=== PATIENT | male | born 1955 | race Caucasian/White ===

== ENCOUNTER 2016-07-03 00:35 | Inpatient (IN) | payer MEDICARE ==
--- NOTE | ~2016-07-03 | PN ---
Unit #: [id number] #: [id number] Patient: OSMANY ADAM [id number] [facility] [address] [place] [address] [id number] MR#: [id number] NAME: OSMANY ADAM ROOM: 12 Age: 60 Sex: M Admission Date: 07/03/2016 : 1955 Attending Physician: Ricki Adhikari M.D. Admitting Physician: Ricki Adhikari M.D. Primary Care Physician: Primary Care Physician Leyda SEBASTIAN NOTES DATE OF SERVICE: 07/05/2016 DISCUSSION Mr. Osmany Adam is a 60-year-old male, seen on 07/05/2016. The patient interviewed, chart reviewed, and obtained information from nursing staff. The patient continues to be isolative and flat affect, but did not require any p.r.n. The patient was able to maintain safe behavior. No aggressive behavior. Flat affect, sad, dysphoric, guarded, paranoid. Compliant with medication. Complete review of systems unremarkable. MENTAL STATUS EXAMINATION General appearance, the patient dressed casually. Attention span and concentration, fair. Oriented in place and person. Mood and affect; sad, dysphoric, flat affect. Speech, monotone. Thought process, concrete. The patient denied any thoughts of harming self or others or any psychotic symptom. Recent and remote memory, poor. Insight and judgment, poor. DIAGNOSIS Schizophrenia, chronic paranoid type. ASSESSMENT AND PLAN Advised to continue with current medication and therapeutic protocol. We will monitor response to medication and make further adjustment of medication. Dictated by... Ginny Mcdonald/felisha TD: 07/06/2016 18:48 JOB #: [id number] Unit #: [id number] #: [id number] Patient: OSMANY ADAM ROMULO NOTES X Ricki Adhikari MD PROGRESS NOTE
--- NOTE | ~2016-07-03 | PA ---
Unit #: [id number] #: [id number] Patient: OSMANY ADAM [id number] [facility] [address] [place] [address] [id number] MR#: [id number] NAME: OSMANY ADAM ROOM: P130 Age: 60 Sex: M Admission Date: 07/03/2016 : 1955 Date of Assessment: Attending Physician: Ricki Adhikari M.D. Admitting Physician: Ricki Adhikari M.D. Primary Care Physician: Primary Care Physician No PSYCHIATRIC ASSESSMENT DATE OF SERVICE 07/03/2016. INFORMANTS The patient reliability, poor; chart, reliability good. CHIEF COMPLAINT Depression, history of schizophrenia, bipolar disorder. HISTORY OF PRESENT ILLNESS Mr. Osmany Gonzales is a 60-year-old male, presented with suicidal ideation and homicidal ideation. The patient reported no exacerbating factor and no stressor. The patient reported that he has not been on his medication. The patient reported no contact with his family, not able to identify other supports. The patient reported feeling of hopelessness, worthlessness, sad, depressed, sleeping 4 hours. The patient reported having suicidal ideation and denied any plans. The patient also reported homicidal ideation and denied any specific person. The patient denied any history of any abuse. No history of any legal charges. The patient is currently on no medication. Denied any use of any drugs or alcohol, but reported to staff, tobacco use, age of onset 13. The patient has a history of use of alcohol, marijuana, crack cocaine, and opioids. The patient reports use of multiple drugs, unable to recall the amount. The patient reported history of blackout. No history of any HIV, hepatitis or withdrawal symptoms, history of IV drug use. Behavior disorganized, irritable, hostile, guarded, and paranoid. Needing inpatient admission at this time for psychiatric stabilization. PAST PSYCHIATRIC HISTORY Remarkable for history of previous treatment for psychosis and [facility] inpatient at [facility]. The patient carries a diagnosis of schizophrenia and polysubstance abuse. The patient reported that he was treated with Prolixin and Artane for long time. FAMILY HISTORY AND SOCIAL HISTORY The patient has a poor support system, homeless. No history of any abuse. MEDICAL HISTORY Unremarkable for any chronic medical illness. Musculoskeletal; muscle strength and tone, no atrophy or abnormal movement. Gait normal. MEDICATION HISTORY Unit #: [id number] #: [id number] Patient: OSMANY ADAM None. The patient was treated in the past with Prolixin and Artane. ALLERGIES No known drug allergies. SUBSTANCE ABUSE HISTORY The patient reported substance abuse as mentioned above. REVIEW OF SYSTEMS HEENT: Eyes, clear. Ears, nose, mouth, throat; clear. CARDIOVASCULAR: Unremarkable. RESPIRATORY: Unremarkable. GI: Unremarkable. : Unremarkable. SKIN: Unremarkable. LYMPH NODE: Unremarkable. NEUROLOGIC: Unremarkable. ENDOCRINE: Unremarkable. HEMATOLOGIC: Unremarkable. ALLERGIC/IMMUNOLOGIC: Unremarkable. MUSCULOSKELETAL: Muscle strength and tone, no atrophy or abnormal movement. Gait normal. MENTAL STATUS EXAMINATION CONSTITUTIONAL: Measurement of vital signs; temperature 97.7, pulse 67, respirations 18, and blood pressure 117/64. Height 5 feet 8 inches and weight 165 pounds. GENERAL APPEARANCE: The patient dressed casually. Hygiene and grooming, poor. MUSCULOSKELETAL: Please see above. PSYCHIATRIC EXAMINATION Description of speech, disorganized. Description of thought process; circumstantial, guarded, paranoid. Description of association; guarded, paranoid, mood lability, seems to be attending to internal stimuli, depression, substance abuse. Description of the patient's judgment: Concerning everyday activity, poor. Social situation, poor. Concerning psychiatric condition, poor. Complete mental status examination; oriented in time, place, and person. Recent and remote memory, poor. Attention span and concentration, poor. Language; able to name object, repeat phrases. Fund of knowledge, poor. Vocabulary, poor. Mood and affect, sad and dysphoric. Insight and judgment, poor. ASSETS AND LIABILITIES Assets; the patient is articulate, able to take care of his ADL. Liabilities; substance abuse, depression, psychosis, schizophrenia, noncompliant with medication. ADMITTING DIAGNOSES Psychiatric: 1. Psychosis, not otherwise specified, F29.0. 2. Schizophrenia, chronic paranoid type, F20.0. 3. Mood disorder, not otherwise specified, F32.9. 4. History of polysubstance abuse. Secondary diagnosis: Deferred. Unit #: [id number] #: [id number] Patient: OSMANY ADAM Medical diagnosis: None. Stressors: Psychosocial stressors. PSYCHIATRIC PLAN, TREATMENT GOAL, AND DISCHARGE PLAN 1. Advised to admit the patient on the inpatient unit. Provide safe, supportive, and structured environment. 2. Ordered labs; CBC, CMP, UA, UDS, T4, TSH, RPR, and EKG to rule out any arrhythmia. 3. Advised to start the patient on Cogentin 1 mg at bedtime and Haldol 5 mg at bedtime for psychosis with a plan to gradually adjust the dosage of Desyrel 50 mg at bedtime and Vistaril 25 mg t.i.d. for anxiety. Plan is to consider SSRI if no improvement. 4. Treatment goal is to attain euthymic mood, gain insight into his problem, and learn coping skills. 5. Discharge plan: Plan is to stabilize the patient and consider followup in outpatient program. ESTIMATED LENGTH OF STAY 2 weeks. Dictated by... Ginny Mcdonald/felisha TD: 07/03/2016 16:23 JOB #: [id number] PSYCHIATRIC ASSESSMENT X Ricki Adhikari MD X PSYCHIATRIC ASSESSMENT
--- NOTE | ~2016-07-03 | DS ---
Unit #: [id number] #: [id number] Patient: JOSÉ MIGUEL ADAM [id number] [facility] [address] [place] [address] [id number] I MR#: [id number] NAME: JOSÉ MIGUEL ADAM ROOM: [facility] Age: 60 Sex: M Admission Date: 07/03/2016 : 1955 Discharge Date: 07/06/2016 Attending Physician: Ricki Adhikari M.D. Primary Care Physician: Primary Care Physician No DISCHARGE SUMMARY REASON FOR ADMISSION Psychosis. DIAGNOSTIC STUDIES LABORATORY RESULTS: Remarkable for AST 50 and ALT 98. Urine drug screen negative. HOSPITAL COURSE The patient was admitted to inpatient unit on 07/03/2016 and discharged on 07/06/2016. The patient was treated on the inpatient unit with group therapy, individual therapy, and medication management. The patient requested for discharge. The patient was not suicidal or homicidal, compliant with medication. Subsequently, the patient was discharged with a plan to follow up in outpatient program such as transition program. DISCHARGE MEDICATIONS Haldol 5 mg at bedtime for psychosis, Cogentin 1 mg at bedtime for EPS symptom, and Desyrel 50 mg at bedtime for sleep. DISCHARGE DIAGNOSES Psychiatric: 1. Schizophrenia, chronic paranoid type, F20.0. 2. Mood disorder, not otherwise specified, F32.9. Secondary diagnosis: Deferred. Medical diagnosis: None. Stressors: Psychosocial stressors. DISCHARGE INSTRUCTIONS The patient is to follow up in outpatient clinic as per social service coordinator. CONDITION ON DISCHARGE The patient was pleasant and cooperative. Denied any psychotic symptom or any suicidal ideation. PROGNOSIS Guarded. DIET AND ACTIVITY As tolerated. Unit #: [id number] #: [id number] Patient: JOSÉ MIGUEL ADAM Dictated by... Ginny McdonaldC/felisha TD: 07/07/2016 12:24 JOB #: [id number] DISCHARGE SUMMARY X Ricki Adhikari MD X DISCHARGE SUMMARY
--- NOTE | ~2016-07-03 | HP ---
Unit #: [id number] #: [id number] Patient: [facility] ADAM [id number] [facility] [address] [place] [address] [id number] MR#: [id number] NAME: OSMANY ADAM ROOM: P112 Age: 60 Sex: M Admission Date: 07/03/2016 : 1955 Attending Physician: Ricki Adhikari M.D. Admitting Physician: Ricki Adhikari M.D. Primary Care Physician: Primary Care Physician No HISTORY AND PHYSICAL HISTORY OF PRESENT ILLNESS Osmany is a 60 year old, admitted to [address] [place] [address] with depression and verbalizing wanting to hurt himself. PAST MEDICAL HISTORY Nothing significant. PAST SURGICAL HISTORY Nothing reported. ALLERGIES No known drug allergies. SOCIAL HISTORY He smokes one pack per day and denies alcohol and illicit drug use, although he does have a history of heroin use. FAMILY HISTORY Medically noncontributory. REVIEW OF SYSTEMS CONSTITUTIONAL: No fever or chills. HEENT: Denies any sore throat, ear pain or runny nose. CARDIOVASCULAR: Denies chest pain, irregular heart rhythm or palpitations. CHEST: Denies shortness of breath or cough. No hemoptysis. GASTROINTESTINAL: Denies nausea, vomiting, diarrhea or chronic constipation. ENDOCRINE: Denies history of increased thirst or urination. No recent significant weight loss or gain. GENITOURINARY: Denies dysuria, frequency, or hematuria. SKIN: Denies any rashes. HEMATOLOGIC: Denies history of increased bleeding or bruising. MUSCULOSKELETAL: Denies any hot, swollen joints. No generalized muscle pain. NEUROLOGIC: Denies problems with vision or speech. No frequent, severe headaches. No numbness, tingling or weakness in any extremities. Denies loss of bladder or bowel control. CURRENT MEDICATIONS 1. Zyprexa Zydis 10 mg q.6h p.r.n. 2. Desyrel 50 mg q.h.s. 3. Cogentin 1 mg q.h.s. 4. Haldol 5 mg q.h.s. Unit #: [id number] #: [id number] Patient: OSMANY ADAM 5. Vistaril 25 mg t.i.d. 6. Milk of magnesia p.r.n. 7. Maalox p.r.n. 8. Tylenol p.r.n. 9. Benadryl p.r.n. PHYSICAL EXAMINATION GENERAL: Alert, well-nourished, no apparent distress. VITAL SIGNS: Blood pressure 124/64, heart rate 80, respirations 16, and temperature 98.6. WEIGHT: 165 pounds. HEIGHT: 5 feet 8 inches. SKIN: Warm and dry without rash or lesion. HEENT: Normocephalic. TMs not viewed. Oral and nasal passages clear. Conjunctivae clear. PERRLA. EOMs intact. NECK: Supple without lymphadenopathy or thyromegaly. HEART: Regular rate and rhythm without murmur. LUNGS: Clear. ABDOMEN: Soft, nontender. : Not done. EXTREMITIES: No evidence of cyanosis, clubbing or edema. Moves all without focal deficit. NEUROLOGICAL: Grossly within normal limits. Cranial Nerves: II: Visual godinez are intact. III, IV AND : Extraocular movements are intact. Pupils are equal, round and reactive to light. V: Facial sensation is grossly normal. VII: Facial movements and expression are normal. VIII: Auditory acuity grossly intact. IX, X: Uvula is midline. Phonation is normal. XI: Patient shrugs shoulders and turns head normally. XII: Tongue protrudes in the midline. Sensory and Motor Function: Sensory and motor sensation is grossly normal. Motor: moves all extremities well. Coordination: Gait is normal. Deep Tendon Reflexes: Intact. IMPRESSION Psychiatric admission. RECOMMENDATIONS Psychiatric, per psychiatrist. MEDICAL I see no contraindications to participating in facility's activities. MEDICAL PROGNOSIS Good. MEDICAL CONDITION Stable. Dictated by... Coby Galeano P.A.-C. for Ginny Prieto/jeanie TD: 07/06/2016 12:13 Unit #: [id number] #: [id number] Patient: OSMANY ADAM JOB #: [id number] HISTORY AND PHYSICAL X Coby Galeano HISTORY AND PHYSICAL
--- NOTE | ~2016-07-03 | PN ---
Unit #: [id number] #: [id number] Patient: OSMANY ADAM [id number] [facility] [address] [place] [address] [id number] MR#: [id number] NAME: OSMANY ADAM ROOM: 12 Age: 60 Sex: M Admission Date: 07/03/2016 : 1955 Attending Physician: Ricki Adhikari M.D. Admitting Physician: Ricki Adhikari M.D. Primary Care Physician: Primary Care Physician Leyda SEBASTIAN NOTES DATE OF SERVICE: 07/04/2016 DISCUSSION Mr. Osmany Adam is a 60-year-old male, seen on 07/04/2016. The patient interviewed, chart reviewed, obtained information from nursing staff. The patient continues to be anxious, nervous, agitated, mood lability. The patient required p.r.n. medication, Zydis and Zyprexa. The patient was isolative, guarded. REVIEW OF SYSTEMS Complete review of systems is unremarkable. MENTAL STATUS EXAMINATION General appearance; the patient dressed casually. Poor hygiene and grooming. Mood; labile, flat affect, sad, dysphoric, withdrawn, isolative, guarded. Denied any thoughts of harming self or others, but guarded, paranoid. Recent and remote memory, poor. Insight and judgment, poor. DIAGNOSIS Schizophrenia, chronic, paranoid type. ASSESSMENT AND PLAN Advised to continue with current medication and therapeutic protocol. We will monitor response to medication and make further adjustment of medication. Dictated by... Ginny Mcdonald/felisha TD: 07/07/2016 06:30 JOB #: [id number] Unit #: [id number] #: [id number] Patient: OSMANY ADAM PROGRESS NOTES X Ricki Adhikari MD PROGRESS NOTE
== END 2016-07-06 10:50 | disposition home or self-care (01) | DRG 885 ==
LOC: P2S 00:35 → P1S 17:44
DX: F29 Unspecified psychosis not due to a substance or known physiological condition (principal); F20.0 Paranoid schizophrenia; F32.9 Major depressive disorder, single episode, unspecified; F19.10 Other psychoactive substance abuse, uncomplicated; F41.9 Anxiety disorder, unspecified; F17.200 Nicotine dependence, unspecified, uncomplicated; F39 Unspecified mood [affective] disorder
CPT/HCPCS: J0515; J1200; J1630; J2060